=== PATIENT | male | born 1970 | race African-American/Black ===

== ENCOUNTER → 2018-02-06 | Outpatient (CLI) | payer OTHER ==
--- NOTE | 2018-02-06 17:10 | Diagnostic Imaging Report ---
History: Leg pain Comparison studies: None Technique: Sagittal, coronal and axial T2 , sagittal T1 and IR, axial spin density oblique. Intravenous contrast: None Findings: Number of lumbar vertebral bodies:5 Alignment: Straightening of the usual lordosis is probably positional.No scoliosis. Soft tissues: No T2 hyperintense inflammatory changes. Paraspinal muscles: No signal abnormalities. No atrophy. Lower thoracic cord:Normal in signal and morphology. The tip of the conus is at T12-L1. Cauda equina: No masses. No arachnoiditis. Vertebrae: Normal in height and signal intensity. No compression fractures, infection or neoplasm. Degenerative changes: L1-L2: No abnormalities. L2-L3: Mildly degenerated disc. Moderate spinal canal stenosis and bilateral foraminal stenosis (moderate right, mild left) is due to a right asymmetric disc bulge, buckling of ligamenta flava and mild facet arthrosis without synovitis. No disc herniation. L3-L4: No abnormalities. L4-L5: Mildly degenerated disc. No Modic type I changes along the endplates. Moderate spinal canal stenosis is due to a disc bulge and mild facet arthrosis without endocarditis. No significant foraminal stenosis. No disc herniation. L5-S1: Mildly degenerated disc. Mild bilateral foraminal stenosis is due to a symmetric disc bulge and facet arthrosis, right greater than left. Pericapsular inflammatory changes surrounding the moderately degenerated right facet. Patent spinal canal. No disc herniation. Partially visualized sacrum: No signal abnormalities. IMPRESSION: 1. Mildly degenerated discs at L2-3, L4-5 and L5-S1. 2. Moderate degenerative spinal canal stenosis at L2-3 and at L4-5 is worse at L2-3. Patent spinal canal at L5-S1. Superimposed foraminal stenosis is moderate right, mild left at L2-3, not significant at L4-5 but mild bilaterally at L5-S1. 3. No disc herniations. Signed by: Dr. Mariano Maki M.D. on 02/06/2018 4:44 PM
== END ==
LOC: MRI 14:42
PROVIDERS: ATTEND Family Medicine
DX: M12.88 Other specific arthropathies, not elsewhere classified, other specified site (principal); M54.5 Low back pain
CPT/HCPCS: 72148